=== PATIENT | female | born 1990 | race Hispanic/Latino ===

== ENCOUNTER 2018-07-04 19:21 | Emergency (ER) | payer SELFPAY ==
[2018-07-04 19:56] LABS: Urine Blood TRACE (NEG); Urine Glucose NEGATIVE (NEG); Urine Protein TRACE (NEG); Urine Specific Gravity >1.030 (1.005-1.030); Urine pH 5.5 (5.0-7.0)
[2018-07-04 20:52] LABS: Absolute Monocytes 0.5 K/uL (0.1-1.3); Absolute Neutrophil 4.7 K/uL (1.8-8.0); Basophils % 0.5 % (0-1.3); Eosinophils % 2.1 % (0-4.4); Hematocrit 34.3 % (36.0-45.0); Lymphocytes % 15.7 % (15.3-44.8); MPV 8.3 fL (7.6-11.3); Monocytes % 7.3 % (3.3-12.3); RBC Red Blood Cell Count 4.46 M/uL (3.86-4.86)
[2018-07-04] MEDS ORDERED: FENTANYL CITR 100 MCG/2 ML ONE ×2 (20:53→21:48)
[2018-07-04] MEDS ORDERED: ONDANSETRON 4 MG/2 ML VIAL ONE (20:53)
[2018-07-04 21:10] LABS: ALT/SGPT 54 U/L (12-78); AST/SGOT 43 U/L (15-37); Albumin 4.1 g/dL (3.4-5.0); Alkaline Phosphatase 84 U/L (45-117); BUN Blood Urea Nitrogen 12 mg/dL (7-18); Bicarbonate 24 mmol/L (21-32); Bilirubin Direct 0.1 mg/dL (0-0.2); Bilirubin Total 0.4 mg/dL (0.2-1.0); Glucose Level 100 mg/dL (74-106); Potassium 3.8 mmol/L (3.5-5.1); Protein, Total 8.1 g/dL (6.4-8.2); Sodium Level 139 mmol/L (136-145)
--- NOTE | 2018-07-04 22:14 | EDPHYS ---
Physician Documentation [facility] Name: Sherie Watkins Age: 28 yrs Sex: Female : 1990 Arrival Date: 07/04/2018 Time: 19:25 Bed 20 Private MD: ED Physician Simon Martinez HPI: 07/04 20:58 This 28 yrs old Female presents to ER via Ambulatory with complaints of jr8 Swollen Glands, Vaginal Pain. 20:58 Patient stated that on June 21 she was diagnosed with PID. Has been on Levaquin and jr8 Flagyl since then. Stated that she feels the pain is worse. Yesterday started to have neck pain and swollen lymph nodes. Mild sore throat today as well . Severity of symptoms: At their worst the symptoms were moderate in the emergency department the symptoms are unchanged. The patient has not experienced similar symptoms in the past. The patient has been recently seen by a physician:. 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 - Social history:: Smoking status: Patient uses tobacco products, smokes one-half pack cigarettes per day. - Ebola Screening: : Patient denies travel to an Ebola-affected area in the 21 days before illness onset. ROS: 20:58 Eyes: Negative for injury, pain, redness, and discharge, Cardiovascular: Negative for jr8 chest pain, palpitations, and edema, Respiratory: Negative for shortness of breath, cough, wheezing, and pleuritic chest pain, Back: Negative for injury and pain, MS/Extremity: Negative for injury and deformity, Skin: Negative for injury, rash, and discoloration, Neuro: Negative for headache, weakness, numbness, tingling, and seizure. 20:58 ENT: Positive for sore throat, Negative for drainage from ear(s), ear pain, nasal discharge, rhinorrhea, sinus congestion, difficulty swallowing, difficulty handling secretions, hoarseness. 20:58 Neck: Positive for pain with movement, pain at rest, swollen nodes, tenderness. 20:58 Abdomen/GI: Positive for abdominal pain, Negative for nausea, vomiting, and diarrhea, abdominal distension, anorexia, dysphagia, hematemesis, black/tarry stool, rectal pain, rectal bleeding, bowel incontinence, flatulence. 20:58 : Positive for pelvic pain. Exam: 20:58 Eyes: Pupils equal round and reactive to light, extra-ocular motions intact. Lids and jr8 lashes normal. Conjunctiva and sclera are non-icteric and not injected. Cornea within normal limits. Periorbital areas with no swelling, redness, or edema. ENT: Nares patent. No nasal discharge, no septal abnormalities noted. Tympanic membranes are normal and external auditory canals are clear. Oropharynx with no redness, swelling, or masses, exudates, or evidence of obstruction, uvula midline. Mucous membranes moist. Cardiovascular: Regular rate and rhythm with a normal S1 and S2. No gallops, murmurs, or rubs. Normal PMI, no JVD. No pulse deficits. Respiratory: Lungs have equal breath sounds bilaterally, clear to auscultation and percussion. No rales, rhonchi or wheezes noted. No increased work of breathing, no retractions or nasal flaring. Back: No spinal tenderness. No costovertebral tenderness. Full range of motion. Skin: Warm, dry with normal turgor. Normal color with no rashes, no lesions, and no evidence of cellulitis. MS/ Extremity: Pulses equal, no cyanosis. Neurovascular intact. Full, normal range of motion. Neuro: Awake and alert, GCS 15, oriented to person, place, time, and situation. Cranial nerves II-XII grossly intact. Motor strength 5/5 in all extremities. Sensory grossly intact. Cerebellar exam normal. Normal gait. 20:58 Neck: External neck: is normal, C-spine: appears grossly normal, Thyroid: appears normal, Trachea: is midline with no obvious abnormalities, ROM/movement: pain, that is mild, with any movement, limited range of motion, is not appreciated, Meningeal signs: Kernig's sign is negative, Brudzinski's sign is negative, nuchal rigidity, is not appreciated, Lymph nodes: lymphadenopathy is appreciated, posterior cervical nodes. 20:58 Abdomen/GI: Inspection: abdomen appears normal, Bowel sounds: active, all quadrants, Palpation: soft, in all quadrants, mild abdominal tenderness, in the right lower quadrant, mass, is not appreciated, rebound tenderness, is not appreciated, voluntary guarding, is not appreciated, involuntary guarding, is not appreciated, no appreciated organomegaly, Indicators: McBurney's point is not tender, Smith's sign is negative, Rovsing's sign is negative, Liver: tenderness, is not appreciated. Vital Signs: 19:33 BP 123 / 80; Pulse 100; Resp 18; Temp 98.5; Pulse Ox 100% on R/A; Weight 54.88 kg (R); aj1 Height 5 ft. 2 in. (157.48 cm) (R); Pain 8/10; 20:15 BP 122 / 76; Pulse 86; Resp 17 S; Pulse Ox 100% on R/A; cc3 21:03 BP 114 / 72; Pulse 84; Resp 18 S; Pulse Ox 99% on R/A; cc3 22:45 BP 118 / 77; Pulse 85; Resp 18 S; Pulse Ox 100% on R/A; cc3 19:33 Body Mass Index 22.13 (54.88 kg, 157.48 cm) aj1 MDM: 20:04 Patient medically screened. jr8 22:11 Data reviewed: vital signs, nurses notes, lab test result(s), radiologic studies, jr8 ultrasound. Data interpreted: Pulse oximetry: on room air is 99 %. Interpretation: normal. Counseling: I had a detailed discussion with the patient and/or guardian regarding: the historical points, exam findings, and any diagnostic results supporting the discharge/admit diagnosis, lab results, radiology results, the need for outpatient follow up, an OB/Gyne specialist, to return to the emergency department if symptoms worsen or persist or if there are any questions or concerns that arise at home. Response to treatment: the patient's symptoms have markedly improved after treatment. ED course: Blood work unremarkable. US shows IUD to be not in place but no myometrial penetration. Ovaries without suspicious findings. No free fluid around the pelvic region. VS stable. No other source of infection noted on physical exam. Recommended to continue her antibiotics and f/u with NURSERY SUPERVISOR. If worse can come back. As far as the lymph nodes. More then likely reactive but non specific at this time. Would not add any more antibiotics currently . 07/04 19:51 Order name: Urine Dipstick--Ancillary (enter results); Complete Time: 20:04 [facility] 07/04 19:51 Order name: Urine --Ancillary (enter results); Complete Time: 20:04 [facility] 07/04 20:18 Order name: CBC with Diff; Complete Time: 21:03 [facility] [place] 07/04 20:18 Order name: Basic Metabolic Panel; Complete Time: 21:14 [facility] [place] 07/04 20:18 Order name: LFT's; Complete Time: 21:14 [facility] [place] 07/04 20:18 Order name: Influenza Screen (a \T\ B); Complete Time: 21:24 [facility] [place] 07/04 20:18 Order name: Strep; Complete Time: 21:25 [facility] [place] 07/04 20:18 Order name: [place] Screen Profile; Complete Time: 21:21 [facility] [place] 07/04 20:19 Order name: US Transvaginal Study (Probe) [facility] [place] 07/04 21:25 Order name: Throat Culture [facility] 07/04 20:19 Order name: IV; Complete Time: 20:50 [facility] [place] Administered Medications: 20:40 Drug: fentaNYL (PF) 50 mcg Route: IVP; Site: left antecubital; cc3 21:02 Follow up: Response: No adverse reaction; Pain is decreased cc3 20:45 Drug: Zofran 4 mg Route: IVP; Site: left antecubital; cc3 21:02 Follow up: Response: No adverse reaction; Nausea is decreased cc3 21:35 Drug: fentaNYL (PF) 50 mcg Route: IVP; Site: left antecubital; cc3 22:00 Follow up: Response: No adverse reaction; Pain is decreased cc3 22:45 Drug: Hydrocodone-Acetaminophen (7.5 mg-325 mg) 1 tabs Route: PO; cc3 23:00 Follow up: Response: No adverse reaction; Pain is decreased cc3 Disposition: 07/04/18 22:14 Discharged to Home. Impression: Pelvic and perineal pain, Nonspecific lymphadenitis. - Condition is Stable. - Discharge Instructions: Pelvic Pain, Female, [id number], Lymphadenopathy. - Prescriptions for Tylenol- Codeine #3 300-30 mg Oral Tablet - take 2 tablets by ORAL route every 6 hours As needed; 12 tablet. - Medication Reconciliation Form, Thank You Letter, Antibiotic Education, Prescription Opioid Use form. - Follow up: Private Physician; When: 1 - 2 days; Reason: Recheck today's complaints, Continuance of care, Re-evaluation by your physician. - Problem is new. - Symptoms have improved. Addendum: 07/06/2018 01:29 Co-signature as Attending Physician, Simon Martinez MD. g s Signatures: Dispatcher [employer] EDAyesha Holliday RN RN aj1 Meng Michel PA PA jr8 Simon Martinez MD MD Shilpi Anne cc3 Corrections: (The following items were deleted from the chart) 07/04 23:00 22:14 07/04/2018 22:14 Discharged to Home. Impression: Pelvic and perineal pain; cc3 Nonspecific lymphadenitis. Condition is Stable. Forms are Medication Reconciliation Form, Thank You Letter, Antibiotic Education, Prescription Opioid Use. Follow up: Private Physician; When: 1 - 2 days; Reason: Recheck today's complaints, Continuance of care, Re-evaluation by your physician. Problem is new. Symptoms have improved. jr8
--- NOTE | 2018-07-04 22:14 | ER ---
Nurse's Notes [facility] Name: Sherie Watkins Age: 28 yrs Sex: Female : 1990 Arrival Date: 07/04/2018 Time: 19:25 Bed 20 Private MD: Diagnosis: Pelvic and perineal pain;Nonspecific lymphadenitis Presentation: 07/04 19:29 Presenting complaint: Patient states: "My lymph nodes are in pain and my uterus has aj1 been in pain the past few weeks and it just seems to be excessively getting worse. I went to the manager bilingual and she diagnosed me with PID, but she said I could also have endometriosis or a displaced IUD. They ran my urine and said that I was STD free. She put me on 2 different antibiotics but one of them is just making me miserable. It makes me really sick and I lose feeling in my hand and feet and I get an unbearable pain in my spine from my head down" Patient was advised to schedule an ultrasound, but she hasn't been able to. Transition of care: patient was not received from another setting of care. Onset of symptoms was June 2018. Risk Assessment: Do you want to hurt yourself or someone else? Patient reports no desire to harm self or others. Initial Sepsis Screen: Does the patient meet any 2 criteria? HR > 90 bpm. No. Patient's initial sepsis screen is negative. Does the patient have a suspected source of infection? Yes: Other: known vaginal infection. Care prior to arrival: None. 19:29 Method Of Arrival: Ambulatory aj1 19:29 Acuity: BRUNO 3 aj1 Triage Assessment: 19:33 General: Appears in no apparent distress. uncomfortable, Behavior is calm, cooperative, aj1 appropriate for age. Pain: Complains of pain in pelvis Pain currently is 8 out of 10 on a pain scale. Neuro: Level of Consciousness is awake, alert, obeys commands, Oriented to person, place, time, situation. Cardiovascular: Patient's skin is warm and dry. Respiratory: Airway is patent Respiratory effort is even, unlabored, Respiratory pattern is regular, symmetrical. 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 - Social history:: Smoking status: Patient uses tobacco products, smokes one-half pack cigarettes per day. - Ebola Screening: : Patient denies travel to an Ebola-affected area in the 21 days before illness onset. Screenin:29 Abuse screen: Denies threats or abuse. Denies injuries from another. Nutritional cc3 screening: No deficits noted. Tuberculosis screening: No symptoms or risk factors identified. Fall Risk Ambulatory Aid- None/Bed Rest/Nurse Assist (0 pts). Gait- Normal/Bed Rest/Wheelchair (0 pts) Mental Status- Oriented to own ability (0 pts). Assessment: 19:33 General: see triage assessment. cc3 20:18 Reassessment: Patient appears in no apparent distress at this time. Patient and/or cc3 family updated on plan of care and expected duration. Pain level reassessed. Patient is alert, oriented x 3, equal unlabored respirations, skin warm/dry/pink. 21:02 Reassessment: Patient appears in no apparent distress at this time. Patient and/or cc3 family updated on plan of care and expected duration. Pain level reassessed. Patient is alert, oriented x 3, equal unlabored respirations, skin warm/dry/pink. 22:25 Reassessment: Patient appears in no apparent distress at this time. Patient and/or cc3 family updated on plan of care and expected duration. Pain level reassessed. Patient is alert, oriented x 3, equal unlabored respirations, skin warm/dry/pink. 23:00 Reassessment: Patient appears in no apparent distress at this time. Patient and/or cc3 family updated on plan of care and expected duration. Pain level reassessed. Patient is alert, oriented x 3, equal unlabored respirations, skin warm/dry/pink. MAY Michel discharged the patient home with prescription given. IV cannula removed and patient left ER vitally stable and ambulatory with her friend. Patient denies pain at this time. Patient states feeling better. Patient states symptoms have improved. Vital Signs: 19:33 BP 123 / 80; Pulse 100; Resp 18; Temp 98.5; Pulse Ox 100% on R/A; Weight 54.88 kg (R); aj1 Height 5 ft. 2 in. (157.48 cm) (R); Pain 8/10; 20:15 BP 122 / 76; Pulse 86; Resp 17 S; Pulse Ox 100% on R/A; cc3 21:03 BP 114 / 72; Pulse 84; Resp 18 S; Pulse Ox 99% on R/A; cc3 22:45 BP 118 / 77; Pulse 85; Resp 18 S; Pulse Ox 100% on R/A; cc3 19:33 Body Mass Index 22.13 (54.88 kg, 157.48 cm) aj1 ED Course: 19:25 Patient arrived in ED. es 19:29 Meng Michel PA is PHCP. jr8 19:29 Simon Martinez MD is Attending Physician. jr8 19:29 Shilpi Anne is Primary Nurse. cc3 19:29 Patient has correct armband on for positive identification. Bed in low position. Call cc3 light in reach. Side rails up X 1. Pulse ox on. NIBP on. 19:32 Triage completed. aj1 19:33 Arm band placed on Patient placed in an exam room. aj1 20:40 Initial lab(s) drawn, by me, sent to lab. Missed attempt(s): 20 gauge in right bb antecubital area. Bleeding controlled, band aid applied, catheter tip intact. Inserted saline lock: 22 gauge in left antecubital area, using aseptic technique. Blood collected. 21:23 Ultrasound completed. Patient tolerated well. Notified ELECTRICIAN STATION ASSISTANT/MAY giles. sg3 21:24 US Transvaginal Study (Probe) In Process Unspecified. EDMS 23:00 No provider procedures requiring assistance completed. IV discontinued, intact, cc3 bleeding controlled, No redness/swelling at site. Pressure dressing applied. Administered Medications: 20:40 Drug: fentaNYL (PF) 50 mcg Route: IVP; Site: left antecubital; cc3 21:02 Follow up: Response: No adverse reaction; Pain is decreased cc3 20:45 Drug: Zofran 4 mg Route: IVP; Site: left antecubital; cc3 21:02 Follow up: Response: No adverse reaction; Nausea is decreased cc3 21:35 Drug: fentaNYL (PF) 50 mcg Route: IVP; Site: left antecubital; cc3 22:00 Follow up: Response: No adverse reaction; Pain is decreased cc3 22:45 Drug: Hydrocodone-Acetaminophen (7.5 mg-325 mg) 1 tabs Route: PO; cc3 23:00 Follow up: Response: No adverse reaction; Pain is decreased cc3 Outcome: 22:14 Discharge ordered by MD. العلي 23:00 Patient left the ED. cc3 23:00 Discharged to home ambulatory, with friend. cc3 23:00 Condition: stable 23:00 Discharge instructions given to patient, Instructed on discharge instructions, follow up and referral plans. medication usage, Demonstrated understanding of instructions, follow-up care, medications, Prescriptions given X 1. Signatures: Dispatcher [employer] Ayesha Rossi RN RN aj1 Sylvie Valdivia Brenda, RN RN bb Roszak, Josh, PA PA jr8 Marti Lopez 3 Shilpi Anne cc3
[2018-07-04] MEDS ORDERED: HYDROCODONE/APAP 7.5/325 MG TAB ONE (22:59)
--- NOTE | 2018-07-05 08:05 | RAD REPORT ---
EXAM DESCRIPTION: US - Transvaginal Study Probe - 07/04/2018 9:32 pm CLINICAL HISTORY: Pelvic pain Preliminary findings provided the time of the study. COMPARISON: None. TECHNIQUE: Endovaginal sonography was performed. FINDINGS: IUD is in place positioned in the lower uterine segment. No focal endometrial mass, polyp or abnormal fluid collection. No myometrial mass. Endometrial stripe is 7-8 mm. Right ovary is normal in size. Doppler evaluation shows normal blood flow pattern. Note tube dilatati on or adnexal mass. No blood or fluid in the cul de sac. Left ovary was not visualized. Bowel gas obscured the left adnexa. No findings to suspect a left tube dilatation. IMPRESSION: No right ovary, right tube or right adnexa abnormality. Nonvisualization of the left ovary with limited left adnexal visualization. IUD is positioned low in the uterus at the lower uterine segment and minimally into the cervix.
[2018-07-08 19:52] VITALS: BP 114/72; O2SAT 99
== END 2018-07-04 23:00 | disposition home or self-care (01) ==
LOC: ER 19:21
DX: R10.2 Pelvic and perineal pain (principal); I88.9 Nonspecific lymphadenitis, unspecified; F90.9 Attention-deficit hyperactivity disorder, unspecified type; Z91.013 Allergy to seafood; Z91.048 Other nonmedicinal substance allergy status; F17.210 Nicotine dependence, cigarettes, uncomplicated
CPT/HCPCS: 36415; 76830; 80048; 80076; 81003; 81025; 85025; 86308; 87070; 87081; 87804; 96374; 96375; 99284; J2405; J3010

== ENCOUNTER 2018-10-24 00:16 | Emergency (ER) | payer SELFPAY ==
[2018-10-24] MEDS ORDERED: ONDANSETRON 4 MG/2 ML VIAL ONE (00:43)
--- NOTE | 2018-10-24 02:27 | ER ---
Nurse's Notes [facility] Name: Sherie Watkins Age: 28 yrs Sex: Female : 1990 Arrival Date: 10/24/2018 Time: 00:18 Bed 17 Private MD: Diagnosis: Toxic effect of ethanol Presentation: 10/24 00:18 Presenting complaint: EMS states: Pt was seen passed out on the floor and vomiting at tr5 [place] [facility]. Pt reports she had 2.5 drinks but also took an anti-depressant before going out tonight. Pt stated that this has happened to her before. Pt had a bag full of medications when EMS arrive and are in custody of [facility] at the moment and unkown. Transition of care: patient was not received from another setting of care. Onset of symptoms was October 24, 2018. Risk Assessment: Do you want to hurt yourself or someone else? Patient reports no desire to harm self or others. Initial Sepsis Screen: Does the patient meet any 2 criteria? No. Patient's initial sepsis screen is negative. Does the patient have a suspected source of infection? No. Patient's initial sepsis screen is negative. Care prior to arrival: Medication(s) given: Normal saline infusion, 1000 mL, IV initiated. 18 GA, in the right forearm, Glucose check: 109. 00:18 Method Of Arrival: EMS: [facility] tr5 00:18 Acuity: BRUNO 3 tr5 Historical: - Allergies: 00:25 DEET; tr5 00:25 shrimp; tr5 - Home Meds: 00:25 Adderall XR Oral [Active]; tr5 - PMHx: 00:25 ADD/ADHD; Anxiety; Heart Murmur; tr5 - PSHx: 00:25 None; tr5 - Immunization history:: Adult Immunizations up to date. - Social history:: Smoking status: Patient/guardian denies using tobacco, never smoked. - Ebola Screening: : No symptoms or risks identified at this time. Screenin:28 Abuse screen: Denies threats or abuse. Nutritional screening: No deficits noted. tr5 Tuberculosis screening: No symptoms or risk factors identified. Fall Risk None identified. Assessment: 00:24 Reassessment: pt admits to taking extra antidepressant tonight,pt denies suicidal ak1 thoughts pt stated "i just wanted to have a nice night out" pt stated she could not remember if she her medications today so she took more tonight. 00:26 General: Appears uncomfortable, Behavior is crying, Smells of alcohol. Pain: Denies tr5 pain. Neuro: Level of Consciousness is awake, Oriented to person, place, Encoding Clerk are equal bilaterally Moves all extremities. Reports dizziness. Cardiovascular: Heart tones present Bruits absent Capillary refill < 3 seconds Pulses are all present. Edema is absent. Respiratory: Airway is patent Trachea midline Respiratory effort is even, unlabored, Respiratory pattern is regular, symmetrical, Breath sounds are clear bilaterally. GI: Abdomen is round Pt is actively vomiting bile, Bowel sounds present X 4 quads. Abd is soft Reports vomiting. : No signs and/or symptoms were reported regarding the genitourinary system. EENT: No signs and/or symptoms were reported regarding the EENT system. Derm: No signs and/or symptoms reported regarding the dermatologic system. Musculoskeletal: No signs and/or symptoms reported regarding the musculoskeletal system. Capillary refill < 3 seconds, Range of motion: intact in all extremities. 01:07 Reassessment: Patient and/or family updated on plan of care and expected duration. Pain tr5 level reassessed. Patient is alert, oriented x 3, equal unlabored respirations, skin warm/dry/pink. Patient states feeling better. 01:54 Reassessment: informed of pt stating she took extra medication. ak1 informed that we do not test for "date rape drug" as he had requested. 02:03 Reassessment: pt ambulated unassisted with steady gait. pt A\\T\\OX4 at this time. ak1 at the bedside to speak with pt and about mixing alcohol and medication. 02:15 Reassessment: Pt refused to provide home medications. Pt refused to perform UDS. Dr. danny Martinez notified. Vital Signs: 00:25 BP 94 / 79; Pulse 89; Resp 16; Pulse Ox 98% on R/A; tr5 01:07 BP 101 / 74; Pulse 86; Resp 15 S; Pulse Ox 100% on R/A; tr5 ED Course: 00:18 Patient arrived in ED. tr5 00:23 Triage completed. tr5 00:25 Simon Martinez MD is Attending Physician. gs 00:25 Arm band placed on. tr5 00:28 Placed in gown. Bed in low position. Call light in reach. Pulse ox on. NIBP on. Door tr5 closed. Noise minimized. 00:28 Inserted saline lock: 18 gauge in right forearm, using aseptic technique. tr5 00:34 Carter Davis, RN is Primary Nurse. tr5 02:05 Warm blanket given. ice water given . ak1 02:37 No provider procedures requiring assistance completed. IV discontinued. tr5 Administered Medications: 00:35 Drug: NS 0.9% 1000 ml Route: IV; Rate: 1 bolus; Site: right forearm; tr5 02:06 Follow up: IV Status: Completed infusion; IV Intake: 1000ml ak1 00:44 Drug: Zofran 4 mg Route: IVP; Site: right forearm; tr5 01:42 Follow up: Response: No adverse reaction tr5 Intake: 02:06 IV: 1000ml; Total: 1000ml. ak1 Outcome: 02:25 Discharge ordered by . 02:37 Discharged to home ambulatory. tr5 02:37 Condition: stable 02:37 Discharge instructions given to patient, Instructed on discharge instructions, follow up and referral plans. Demonstrated understanding of instructions, follow-up care. 02:37 Patient left the ED. tr5 Signatures: Joan Pearson RN RN ak1 Simon Martinez MD MD gs Rodriguez, Tommie, RN RN tr5
--- NOTE | 2018-10-24 02:27 | EDPHYS ---
Physician Documentation [facility] Name: Sherie Watkins Age: 28 yrs Sex: Female : 1990 Arrival Date: 10/24/2018 Time: 00:18 Bed 17 Private MD: ED Physician Simon Martinez HPI: 10/24 01:58 This 28 yrs old Female presents to ER via EMS with complaints of Vomiting. gs 01:58 The patient presents to the emergency department with vomiting. Onset: The gs symptoms/episode began/occurred acutely, just prior to arrival. Possible causes: etoh ingestion. The symptoms are aggravated by nothing. The symptoms are alleviated by nothing. Associated signs and symptoms: Pertinent positives: vomiting, Pertinent negatives: GI bleeding. Severity of symptoms: At their worst the symptoms were severe in the emergency department the symptoms have improved mildly. It is unknown whether or not the patient has had similar symptoms in the past. Historical: - Allergies: 00:25 DEET; tr5 00:25 shrimp; tr5 - Home Meds: 00:25 Adderall XR Oral [Active]; tr5 - PMHx: 00:25 ADD/ADHD; Anxiety; Heart Murmur; tr5 - PSHx: 00:25 None; tr5 - Immunization history:: Adult Immunizations up to date. - Social history:: Smoking status: Patient/guardian denies using tobacco, never smoked. - Ebola Screening: : No symptoms or risks identified at this time. ROS: 01:58 All other systems are negative. gs Exam: 01:58 Head/Face: Normocephalic, atraumatic. Eyes: Pupils equal round and reactive to light, gs extra-ocular motions intact. Lids and lashes normal. Conjunctiva and sclera are non-icteric and not injected. Cornea within normal limits. Periorbital areas with no swelling, redness, or edema. ENT: Nares patent. No nasal discharge, no septal abnormalities noted. Tympanic membranes are normal and external auditory canals are clear. Oropharynx with no redness, swelling, or masses, exudates, or evidence of obstruction, uvula midline. Mucous membranes moist. Neck: Trachea midline, no thyromegaly or masses palpated, and no cervical lymphadenopathy. Supple, full range of motion without nuchal rigidity, or vertebral point tenderness. No Meningismus. Chest/axilla: Normal chest wall appearance and motion. Nontender with no deformity. No lesions are appreciated. Cardiovascular: Regular rate and rhythm with a normal S1 and S2. No gallops, murmurs, or rubs. Normal PMI, no JVD. No pulse deficits. Respiratory: Lungs have equal breath sounds bilaterally, clear to auscultation and percussion. No rales, rhonchi or wheezes noted. No increased work of breathing, no retractions or nasal flaring. Abdomen/GI: Soft, non-tender, with normal bowel sounds. No distension or tympany. No guarding or rebound. No evidence of tenderness throughout. Back: No spinal tenderness. No costovertebral tenderness. Full range of motion. Skin: Warm, dry with normal turgor. Normal color with no rashes, no lesions, and no evidence of cellulitis. MS/ Extremity: Pulses equal, no cyanosis. Neurovascular intact. Full, normal range of motion. Neuro: Awake and alert, GCS 15, oriented to person, place, time, and situation. Cranial nerves II-XII grossly intact. Motor strength 5/5 in all extremities. Sensory grossly intact. Cerebellar exam normal. Normal gait. 01:58 Constitutional: The patient appears alert, awake. Vital Signs: 00:25 BP 94 / 79; Pulse 89; Resp 16; Pulse Ox 98% on R/A; tr5 01:07 BP 101 / 74; Pulse 86; Resp 15 S; Pulse Ox 100% on R/A; tr5 MDM: 00:31 Patient medically screened. 02:24 Data reviewed: vital signs, nurses notes. Response to treatment: the patient's symptoms gs have markedly improved after treatment, the patient's symptoms have resolved after treatment, the patient's condition has returned to base line, pt initially stated she wanted drug screen and etoh level then rescinded. 10/24 01:32 Order name: [facility]. Order: walk pt see if can walk on own; Complete Time: 02:06 gs Administered Medications: 00:35 Drug: NS 0.9% 1000 ml Route: IV; Rate: 1 bolus; Site: right forearm; tr5 02:06 Follow up: IV Status: Completed infusion; IV Intake: 1000ml ak1 00:44 Drug: Zofran 4 mg Route: IVP; Site: right forearm; tr5 01:42 Follow up: Response: No adverse reaction tr5 Disposition: 10/24/18 02:25 Discharged to Home. Impression: Toxic effect of ethanol. - Condition is Stable. - Discharge Instructions: Alcohol Intoxication. - Medication Reconciliation Form, Thank You Letter, Antibiotic Education, Prescription Opioid Use form. - Follow up: Private Physician; When: 2 - 3 days; Reason: Re-evaluation by your physician. Signatures: Dispatcher [employer] [facility] Simon Martinez MD MD Carter Davis RN RN tr5 Joan Pearson RN ak1 Corrections: (The following items were deleted from the chart) 02:21 02:13 Urine Test ordered. [facility] 02:21 02:13 Urine Dipstick-Ancillary ordered. [facility] 02:24 02:14 Alcohol Serum/Plasma ordered. [facility] 02:37 02:25 10/24/2018 02:25 Discharged to Home. Impression: Toxic effect of ethanol. tr5 Condition is Stable. Forms are Medication Reconciliation Form, Thank You Letter, Antibiotic Education, Prescription Opioid Use. Follow up: Private Physician; When: 2 - 3 days; Reason: Re-evaluation by your physician.
[2018-10-24 03:36] VITALS: BP 101/74; O2SAT 100
== END 2018-10-24 02:37 | disposition home or self-care (01) ==
LOC: ER 00:16
DX: T51.0X1A Toxic effect of ethanol, accidental (unintentional), initial encounter (principal); Y92.9 Unspecified place or not applicable; F90.9 Attention-deficit hyperactivity disorder, unspecified type; Z88.8 Allergy status to other drugs, medicaments and biological substances; Z91.013 Allergy to seafood
CPT/HCPCS: 96361; 96374; 99284; J2405

== ENCOUNTER 2018-11-22 13:41 | Emergency (ER) | payer SELFPAY ==
[2018-11-22] MEDS ORDERED: HYDROCODONE/APAP 10/325 TAB ONE (14:48)
[2018-11-22 15:20] LABS: Urine Blood TRACE (NEG); Urine Glucose NEGATIVE (NEG); Urine Protein NEGATIVE (NEG); Urine Specific Gravity 1.015 (1.005-1.030); Urine pH 8.5 (5.0-7.0)
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
[2018-11-22] MEDS ORDERED: ONDANSETRON 4 MG (ODT) TAB ONE (16:12)
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
[2018-11-22 18:08] LABS: Urine Specific Gravity 1.015 (1.005-1.030)
[2018-11-22 20:51] VITALS: TEMP 98.3
[2018-11-22 20:56] VITALS: BP 115/79; O2SAT 100
== END 2018-11-22 18:09 | disposition home or self-care (01) ==
LOC: ER 13:41
DX: S00.83XA Contusion of other part of head, initial encounter (principal); S80.02XA Contusion of left knee, initial encounter; S40.012A Contusion of left shoulder, initial encounter; Y09 Assault by unspecified means; N39.0 Urinary tract infection, site not specified; Z72.0 Tobacco use; Z88.8 Allergy status to other drugs, medicaments and biological substances; Z91.013 Allergy to seafood
CPT/HCPCS: 70450; 70486; 71250; 72125; 76377; 81003; 81025; 99284

== ENCOUNTER 2019-11-05 18:39 | Emergency (ER) | payer BC, SELFPAY ==
[2019-11-05 20:01] LABS: Absolute Lymphocytes (CBC) 1.7 K/uL (0.7-4.9); Basophils % 0.4 % (0-1.3); Hematocrit 41.4 % (36.0-45.0); MPV 8.5 fL (7.6-11.3); RBC Red Blood Cell Count 4.97 M/uL (3.86-4.86)
[2019-11-05 20:20] LABS: BUN Blood Urea Nitrogen 7 mg/dL (7-18); Bicarbonate 25 mmol/L (21-32); Glucose Level 80 mg/dL (74-106); Potassium 3.6 mmol/L (3.5-5.1); Sodium Level 143 mmol/L (136-145); Troponin (Emerg Dept Use Only) < 0.02 ng/mL (0.0-0.045)
[2019-11-05 20:47] LABS: Urine Blood 1+ (NEG); Urine Glucose NEGATIVE (NEG); Urine Protein NEGATIVE (NEG)
--- NOTE | 2019-11-05 21:53 | EDPHYS ---
Physician Documentation [facility] Name: Sherie Watkins Age: 29 yrs Sex: Female : 1990 Arrival Date: 11/05/2019 Time: 18:42 Bed 27 Private MD: ED Physician Stuart Leal HPI: 11/04 19:36 This 29 yrs old Female presents to ER via Ambulatory with complaints of Chest rn Tightness, Arm Problem. 19:36 The patient or guardian reports chest pain that is located primarily in the anterior rn chest wall, left. The pain radiates to the left arm. The chest pain is described as sharp. Duration: The patient or guardian reports a single episode. Modifying factors: The symptoms are alleviated by nothing. the symptoms are aggravated by nothing. Severity of pain: At its worst the pain was moderate in the emergency department the pain has improved. The patient has not experienced similar symptoms in the past. REports left upper outer chest pain, sharp, began earlier today, no fever/cough/sob. Reports left arm felt "cold", has never happened before. No famhx of early cardiac problems. Improving after taking Excedrin. No trauma. . 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 - Social history:: Smoking status: Reported history of juuling and/or vaping. - Family history:: not pertinent. - Hospitalizations: : No recent hospitalization is reported. ROS: 19:36 Constitutional: Negative for fever, chills, and weight loss, Eyes: Negative for injury, rn pain, redness, and discharge, Neck: Negative for injury, pain, and swelling, Cardiovascular: Negative for palpitations, and edema, Respiratory: Negative for shortness of breath, cough, wheezing, and pleuritic chest pain, Abdomen/GI: Negative for vomiting, diarrhea, and constipation, Back: Negative for injury and pain, MS/Extremity: Negative for injury and deformity, Skin: Negative for injury, rash, and discoloration, Neuro: Negative for headache, weakness, numbness, tingling, and seizure. Exam: 19:36 Constitutional: This is a well developed, well nourished patient who is awake, alert, rn and in no acute distress. Ambulatory to room without difficulty or assistance. Head/Face: Normocephalic, atraumatic. Cardiovascular: Regular rate and rhythm. No pulse deficits. Respiratory: Speaking full sentences. No increased work of breathing, no retractions or nasal flaring. Abdomen/GI: soft, non-tender, neg don[place]ue Skin: Warm, dry with normal turgor. Normal color with no rashes, no lesions, and no evidence of cellulitis. MS/ Extremity: Pulses equal, no cyanosis. Neurovascular intact. Full, normal range of motion. Equal circumference. Neuro: Awake and alert, GCS 15, oriented to person, place, time, and situation. Cranial nerves II-XII grossly intact. Motor strength 5/5 in all extremities. Sensory grossly intact. Cerebellar exam normal. Normal gait. 19:46 ECG was reviewed by the Attending Physician. rn Vital Signs: 18:54 Pulse 100; Resp 17 S; Temp 98.4(O); Pulse Ox 99% on R/A; Weight 44.45 kg (R); Height 5 jd3 ft. 2 in. (157.48 cm) (R); 19:33 BP 126 / 95; Pulse 91; Resp 18; Pulse Ox 99% ; ea 20:52 BP 123 / 87; Pulse 92; Resp 18; Pulse Ox 98% on R/A; ea 18:54 Body Mass Index 17.92 (44.45 kg, 157.48 cm) jd3 MDM: 19:13 Patient medically screened. rn 21:51 Differential diagnosis: acute myocardial infarction, acute pericarditis, anxiety, chest rn wall pain, gastroesophageal reflux disease (GERD), pleurisy, pneumonia, pneumothorax, thoracic aortic disection. Data reviewed: vital signs, nurses notes, lab test result(s), radiologic studies, CT scan, and as a result, I will discharge patient. Counseling: I had a detailed discussion with the patient and/or guardian regarding: the historical points, exam findings, and any diagnostic results supporting the discharge/admit diagnosis, lab results, radiology results, the need for outpatient follow up, to return to the emergency department if symptoms worsen or persist or if there are any questions or concerns that arise at home. Response to treatment: the patient's symptoms have mildly improved after treatment, and as a result, I will discharge patient. Special discussion: I discussed with the patient/guardian in detail that at this point there is no indication for admission to the hospital. It is understood, however, that if the symptoms persist or worsen the patient needs to return immediately for re-evaluation. Based on the history and exam findings, there is no indication for further emergent testing or inpatient evaluation. I discussed with the patient/guardian the need to see the primary care provider for further evaluation of the symptoms. 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 . 11/04 19:24 Order name: CBC with Diff; Complete Time: 20:20 11/04 19:24 Order name: Basic Metabolic Panel; Complete Time: 20:20 11/04 19:24 Order name: CT Aorta for Dissection 11/04 19:24 Order name: Troponin (emerg Dept Use Only); Complete Time: 20:20 11/04 20:44 Order name: Urine Dipstick--Ancillary (enter results); Complete Time: 20:48 mw2 11/04 20:44 Order name: Urine --Ancillary (enter results); Complete Time: 20:48 [facility] 11/04 19:24 Order name: IV Start; Complete Time: 20:16 11/04 19:24 Order name: EKG; Complete Time: 19:25 11/04 19:24 Order name: EKG - Nurse/Tech; Complete Time: 20:16 11/04 19:24 Order name: Urine Test (obtain specimen); Complete Time: 20:42 rn EC:46 Rate is 100 beats/min. Rhythm is regular. Right axis deviation noted. QRS is positive rn in lead aVF and negative in lead I. HI interval is normal. QRS interval is normal. QT interval is normal. No Q waves. T waves are Normal. No ST changes noted. Clinical impression: Normal ECG. Interpreted by me. Reviewed by me. Administered Medications: No medications were administered Disposition: 11/05/19 21:52 Discharged to Home. Impression: Chest pain, unspecified. - Condition is Stable. - Discharge Instructions: Nonspecific Chest Pain, Pain Without a Known Cause. - Medication Reconciliation Form, Thank You Letter, Antibiotic Education, Prescription Opioid Use form. - Follow up: Private Physician; When: As needed; Reason: Recheck today's complaints, Re-evaluation by your physician. - Problem is new. - Symptoms have improved. Signatures: Dispatcher [employer] EDMS Stuart Leal MD MD rn Antunez, Elena, RN RN Raj Singh RN RN jd3 Corrections: (The following items were deleted from the chart) 22:15 21:52 11/05/2019 21:52 Discharged to Home. Impression: Chest pain, unspecified. ea Condition is Stable. Discharge Instructions: Nonspecific Chest Pain, Pain Without a Known Cause. Forms are Medication Reconciliation Form, Thank You Letter, Antibiotic Education, Prescription Opioid Use. Follow up: Private Physician; When: As needed; Reason: Recheck today's complaints, Re-evaluation by your physician. Problem is new. Symptoms have improved. rn
--- NOTE | 2019-11-05 21:53 | ER ---
Nurse's Notes [facility] Name: Sherie Watkins Age: 29 yrs Sex: Female : 1990 Arrival Date: 11/05/2019 Time: 18:42 Bed 27 Private MD: Diagnosis: Chest pain, unspecified Presentation: 11/04 18:51 Chief complaint: Patient states: "My symptoms were worrying my , so he wanted me jd3 to get checked. I think it is just my anxiety. I feel a tightness down my left side of my neck shoulder.". Coronavirus screen: At this time, the client does not indicate any symptoms associated with coronavirus-19. Ebola Screen: Patient negative for fever greater than or equal to 101.5 degrees Fahrenheit, and additional compatible Ebola Virus Disease symptoms. Initial Sepsis Screen: Does the patient meet any 2 criteria? No. Patient's initial sepsis screen is negative. Does the patient have a suspected source of infection? No. Patient's initial sepsis screen is negative. Risk Assessment: Do you want to hurt yourself or someone else? Patient reports no desire to harm self or others. Onset of symptoms was November 05, 2019. 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 - Social history:: Smoking status: Reported history of juuling and/or vaping. - Family history:: not pertinent. - Hospitalizations: : No recent hospitalization is reported. Screenin:45 Abuse screen: Denies threats or abuse. Nutritional screening: No deficits noted. ea Tuberculosis screening: No symptoms or risk factors identified. Fall Risk None identified. Assessment: 19:45 General: Appears uncomfortable, Behavior is appropriate for age. Pain: Complains of ea pain in chest Pain began suddenly. Neuro: Level of Consciousness is awake, alert, obeys commands, Oriented to person, place, time, situation. Cardiovascular: Patient's skin is warm and dry. Respiratory: Airway is patent Respiratory effort is even, unlabored, Respiratory pattern is regular, symmetrical. Derm: Skin is dry, Skin is pale, Skin temperature is warm. 20:46 Reassessment: Patient and/or family updated on plan of care and expected duration. Pain ea level reassessed. Patient is alert, oriented x 3, equal unlabored respirations, skin warm/dry/pink. 20:53 Pain: Pain does not radiate. ea 21:55 Reassessment: Patient and/or family updated on plan of care and expected duration. Pain ea level reassessed. Patient is alert, oriented x 3, equal unlabored respirations, skin warm/dry/pink. 22:14 Reassessment: Patient and/or family updated on plan of care and expected duration. Pain ea level reassessed. Patient is alert, oriented x 3, equal unlabored respirations, skin warm/dry/pink. Discharge instruction given to patient, verbalized the understanding of instruction. Pt left ED ambulatory tolerating well. Vital Signs: 18:54 Pulse 100; Resp 17 S; Temp 98.4(O); Pulse Ox 99% on R/A; Weight 44.45 kg (R); Height 5 jd3 ft. 2 in. (157.48 cm) (R); 19:33 BP 126 / 95; Pulse 91; Resp 18; Pulse Ox 99% ; ea 20:52 BP 123 / 87; Pulse 92; Resp 18; Pulse Ox 98% on R/A; ea 18:54 Body Mass Index 17.92 (44.45 kg, 157.48 cm) jd3 ED Course: 18:42 Patient arrived in ED. ag5 18:54 Triage completed. jd3 18:54 Arm band placed on. jd3 19:13 Stuart Leal MD is Attending Physician. rn 19:33 Selina Cuevas RN is Primary Nurse. ea 19:45 Patient has correct armband on for positive identification. Placed in gown. Bed in low ea position. Call light in reach. monitor technician on. Pulse ox on. NIBP on. 19:45 Patient maintains SpO2 saturation greater than 95% on room air. ea 19:47 EKG done, by ED staff. Inserted saline lock: 20 gauge in right antecubital area, using tt3 aseptic technique. Blood collected. 19:48 Initial lab(s) drawn, by me, sent to lab. tt3 21:06 CT Aorta for Dissection In Process Unspecified. EDMS 22:00 No provider procedures requiring assistance completed. ea 22:00 IV discontinued, intact, bleeding controlled, No redness/swelling at site. Pressure ea dressing applied. Administered Medications: No medications were administered Outcome: 21:52 Discharge ordered by MD. rn 22:14 Discharged to home ambulatory. ea 22:14 Condition: stable 22:14 Discharge instructions given to patient, Instructed on discharge instructions, follow up and referral plans. Demonstrated understanding of instructions, follow-up care. 22:15 Patient left the ED. ea Signatures: Dispatcher [employer] EDMS Stuart Leal MD MD rn Antunez, Elena RN Raj Jaimes ea, RN RN jd3 Gaskin, Ajare ag5 Trim, Tyler tt3 Corrections: (The following items were deleted from the chart) 19:48 19:47 Inserted saline lock: 20 gauge in right antecubital area, using aseptic tt3 technique. tt3 19:48 19:47 Inserted tt3 tt3
--- NOTE | 2019-11-06 14:08 | RAD REPORT ---
EXAM DESCRIPTION: CT - Angio Aorta For Dissection - 11/06/2019 12:37 am CLINICAL HISTORY: The patient is 29 years old and is Female; subjective left arm discoloration and p ain; Chest pain TECHNIQUE: Axial computed tomographic angiography images of the chest, abdomen and pelvis with intra venous contrast. This CT exam was performed using one or more of the following dose reduction techn iques: automated exposure control, adjustment of the mA and/or kV according to patient size, and/or use of iterative reconstruction technique. MIP reconstructed images were created and reviewed. DLP: 542 mGy*cm COMPARISON: None. FINDINGS: VASCULATURE: AORTA: No acute findings. No aortic aneurysm. No dissection. PULMONARY ARTERIES: Unremarkable as visualized. No pulmonary embolism is identified. GREAT VESSELS OF AORTIC ARCH: No acute findings. No dissection. No arterial occlusion or signi ficant stenosis. CELIAC TRUNK AND MESENTERIC ARTERIES: No acute findings. No occlusion or significant stenosis. RENAL ARTERIES: No acute findings. No occlusion or significant stenosis. ILIAC ARTERIES: No acute findings. No occlusion or significant stenosis. CHEST: LUNGS: Unremarkable. No mass. No consolidation. PLEURAL SPACE: Unremarkable. No significant effusion. No pneumothorax. HEART: Unremarkable. No cardiomegaly. No significant pericardial effusion. THYROID: Thyroid is normal. ABDOMEN: LIVER: Unremarkable. No mass. GALLBLADDER AND BILE DUCTS: Unremarkable. No calcified stones. No ductal dilation. PANCREAS: Unremarkable. No ductal dilation. No mass. SPLEEN: Unremarkable. No splenomegaly. ADRENALS: Unremarkable. No mass. KIDNEYS AND URETERS: Unremarkable. No hydronephrosis. No solid mass. STOMACH AND BOWEL: Unremarkable. No obstruction. No mucosal thickening. PELVIS: APPENDIX: The appendix is seen and is within normal limits. BLADDER: Unremarkable. No mass. REPRODUCTIVE: 1.5 cm right ovarian corpus luteal cyst. Hyperdensity in the fundal endometrium. Tor tuous pelvic vasculature. CHEST, ABDOMEN and PELVIS: INTRAPERITONEAL SPACE: Small amount of free pelvic fluid. No free air. BONES/JOINTS: No acute fracture. No dislocation. SOFT TISSUES: Unremarkable. LYMPH NODES: Unremarkable. No enlarged lymph nodes. IMPRESSION: 1. No acute aortic abnormality. No acute intrathoracic, abdominal or pelvic abnormalit y. 2. Physiologic pelvic changes with hyperdensity in the endometrium, 1.5 cm corpus luteal cyst and p ossible pelvic congestion syndrome. No follow-up imaging is recommended. Reference: US recommendation s based on Radiology 2009;256(3):943-54; CT/MR recommendations based on J Am Patrica Radiol 2013;10: 675-681. Electronically signed by: Smooth Mark DO 11/05/2019 9:43 PM CDT Due to temporary technical issues with the PACS/Fluency reporting system, reports are being signed by the in house radiologist without review as a courtesy to ensure prompt reporting. The interpreting r adiologist is fully responsible for the content of the report.
== END 2019-11-05 22:15 | disposition home or self-care (01) ==
LOC: ER 18:39
DX: R07.9 Chest pain, unspecified (principal); R41.9 Unspecified symptoms and signs involving cognitive functions and awareness; F90.9 Attention-deficit hyperactivity disorder, unspecified type; Z88.8 Allergy status to other drugs, medicaments and biological substances; Z91.013 Allergy to seafood
CPT/HCPCS: 36415; 71275; 74175; 80048; 81003; 81025; 84484; 85025; 93005; 99285